=== PATIENT | male | born 1995 | race Caucasian/White ===

== ENCOUNTER 2021-07-23 14:22 | Emergency (ER) | payer BC, SELFPAY ==
[2021-07-23 15:24] VITALS: PULSE 86; RESP 19; TEMP 36.8; O2SAT 97; BMI 23.7
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
[2021-07-23 16:10] VITALS: BP 0/0; PULSE 86; RESP 19; TEMP 36.8; O2SAT 97
== END 2021-07-23 16:11 | disposition home or self-care (01) ==
PROVIDERS: Emergency Provider Nurse Practitioner; PCP Pediatrics
DX: T15.01XA Foreign body in cornea, right eye, initial encounter (principal); Z88.0 Allergy status to penicillin
CPT/HCPCS: 99212; G0463